=== PATIENT | male | born 1940 | race Caucasian/White ===

== ENCOUNTER → 2023-02-04 10:39 | Outpatient (REF) | payer OTHER, SELFPAY ==
--- NOTE | 2023-02-04 10:46 | CA_ITS ---
Transthoracic Echocardiogram Patient (Last, First, Middle): Guille Gilmore, Gender: Male Date of : 1940 Age: 82 Procedure Date: 02/04/2023 Procedure Type: Transthoracic Echocardiogram Location: OP Height: 154.94 cm Weight: 52.16 kg BSA: 1.49 m2 Heart Rate: 58 bpm BP: 110 / 70 mmHg Cage/Vault Supervisor: SB Referring MD: Stephanie MACIAS Symptoms: R01.1 SYSTOLIC MURMUR Study Quality: Adequate ECG Rhythm: Bradycardia Conclusions: - The left ventricular systolic function is normal. The calculated ejection fraction is 62% by biplane method. - There is moderate to severe aortic valve stenosis. - There is moderate mitral annular calcification. - There is mild to moderate tricuspid valve regurgitation. Findings Left Ventricle Normal left ventricular cavity size. There is normal left ventricular wall thickness. The left ventricular systolic function is normal. The calculated ejection fraction is 62% by biplane method. There is no evidence of regional wall motion abnormalities. Evidence suggests grade I (mild) diastolic dysfunction. Right Ventricle Normal right ventricular cavity size and systolic function. Atria The left atrium is normal in size. The right atrium is mildly dilated. Aortic Valve There is moderate calcification of the aortic valve. There is moderate to severe aortic valve stenosis. The peak aortic velocity is 3.03 m/s with a calculated peak gradient of 37 mmHg. The mean gradient is 20 mmHg. The aortic valve area is 0.81 cm2. There is no aortic valve regurgitation. Dimensionless index 0.29. Stroke volume index 42mL/m2. Mitral Valve There is moderate mitral annular calcification. There is trace mitral valve regurgitation. There is no mitral valve stenosis. Pulmonic Valve The pulmonic valve is likely normal. Tricuspid Valve Normal tricuspid valve structure. There is mild to moderate tricuspid valve regurgitation. There is no evidence of pulmonary hypertension. Great Vessels The asc aorta is normal in size. Venous The inferior vena cava is normal in size and collapses greater than 50% with inspiration. Pericardium/Pleural There is no evidence of pericardial effusion. Prior Study Comparison Changes noted compared to prior study dated: 02/10/2019. Prior study at [facility]- progression of aortic stenosis. Measurements 2D Linear Measurements IVSd: 0.85 0.6-0.9/0.6-1.0 cm LVIDd: 4.47 3.9-5.3/4.2-5.9 cm LVIDd Index: 3.00 2.4-3.2/2.2-3.1 cm/m2 LVIDs: 2.89 2.0-3.6 cm LVPWd: 0.63 0.7-1.1 cm LA Diam: 3.70 2.7-3.8/3.0-4.0 cm LAIDs Index: 2.48 1.5-2.3 cm/m2 LV Mass: 125.74 67-162/88-224 g LV Mass Index: 84.39 43-95/49-115 g/m2 LVOT Diam: 1.90 3.0+(-)1.3 cm 2D Systolic Function EF 4C: 62.00 >55% EF 2C: 58.70 >55% EF BiP: 61.80 >55% Mitral Valve MV VTI: 0.32 MV Pk Phani: 1.22 MV Mn Phani: 0.64 MV Pk Grad: 6.00 MV Mn Grad: 2.00 MV Pk E: 0.87 MV PK A: 1.31 MV Decel Time: 163.00 E/A: 0.70 E'Lateral: 5.98 E/E' Lat: 14.60 PHT: 48.00 MVA PHT: 4.58 MVA Continuity: 1.99 Decel [place]: 5.36 Aortic Valve AoV Pk Phani: 3.03 AoV Mn Phani: 2.08 AoV VTI: 0.78 AoV Pk Grad: 37.00 Aov Mn Grad: 20.00 DOUGIE Cont.VTI: 0.81 LVOT LVOT Pk Phani: 0.88 LVOT Mn Phani: 0.62 LVOT VTI: 0.22 LVOT Pk Grad: 3.00 LVOT Mn Grad: 2.00 LVOT Diam: 1.90 LVOT Area: 2.84 Diastolic Function MV Pk E: 0.87 MV Pk A: 1.31 E/A: 0.70 E' Laterial: 5.98 E/E' Lat: 14.60 Right Ventricle TAPSE (mm): 22.00 TVS' Phani: 10.30 Tricuspid Valve TR Pk Phani: 2.68 TR Pk Grad: 29.00 RA Press: 3.00 RVSP: 32.00 Great Vessels Aorta Sinus of Valsalva: 2.50 2.0-3.5 cm Ao Asc: 3.10 2.1-3.4 cm Pulmonary Veins Pulm Vein S/D 2.10 Pulmonary Valve PV Pk Phani: 1.09 Peak PV Grad: 5.00 Updated in Other Vendor System with Status of Final Abilio Garza MD electronically signed on 02/05/2023 12:11:42 PM with status of Final
== END ==
LOC: HO.CARD 10:39
PROVIDERS: PCP Physician Assistant; Visit Provider Physician Assistant
DX: R01.1 Cardiac murmur, unspecified (principal)
CPT/HCPCS: 93306

== ENCOUNTER → 2023-02-04 10:46 | Outpatient (BNV) | payer OTHER, SELFPAY | PROVIDERS: PCP Physician Assistant; Visit Provider Internal Medicine | DX: I35.0 Nonrheumatic aortic (valve) stenosis (principal); I36.1 Nonrheumatic tricuspid (valve) insufficiency | CPT/HCPCS: 93306 ==